=== PATIENT | female | born 1955 | race African-American/Black ===

== ENCOUNTER 2018-09-19 20:35 | Observation (INO) ==
[2018-09-19 21:23] LABS: Basophils % 0.2 % (0.0-0.8); Eosinophils % 0.3 % (0.00-10.9); Hematocrit 37.6 VOL% (35.7-47.0); Hemoglobin 11.9 GM/DL (12.0-16.0); Immature Granulocytes % 0.5 %; Immature Granulocytes Absolute 0.03 #; Lymphocytes # 1.5 10*3/uL (1.4-4.0); Lymphocytes % 24.1 % (21.3-54.2); Mean Corpuscular HGB Conc 31.6 GM/DL (32-36); Mean Corpuscular Hemoglobin 29 PG (27-34); Mean Corpuscular Volume 91.5 FL (87-102); Mean Platelet Volume 10.8 FL (9.6-12.0); Monocytes # 0.5 10*3/uL (0.11-0.8); Monocytes % 7.6 % (1.7-12.7); Neutrophils # 4.2 10*3/uL (1.4-7.4); Neutrophils % 67.3 % (38.7-73.9); Platelet Count 205 T/CUMM (130-400); Red Blood Count 4.11 MC/CUMM (3.8-5.5); Red Cell Distribution Width 14.1 % (9.3-17.3); White Blood Count 6.3 T/CUMM (4-12)
[2018-09-19 21:33] LABS: Partial Thromboplastin Time 28.9 SECS (0-40)
[2018-09-19 21:50] LABS: Alanine Aminotransferase 16 U/L (13-56); Albumin 3.7 G/DL (3.4-5.0); Alkaline Phosphatase 137 U/L (45-117); Aspartate Amino Transferase 14 U/L (0-37); Bilirubin,Total < 0.39 MG/DL (0.2-1.0); Blood Urea Nitrogen 21 MG/DL (7-18); Calcium 9.2 MG/DL (8.5-10.1); Glucose 132 MG/DL (74-106); Osmolality,Calculated 285.3 MOS/KG (273-304); Potassium 3.4 MMOL/L (3.5-5.1); Sodium 141 MMOL/L (136-145); Total Protein 6.9 G/DL (6.4-8.3)
[2018-09-20] MEDS ORDERED: ACETAMINOPHEN 325 MG TABLET PO PRN (02:07)
[2018-09-20] MEDS ORDERED: DOCUSATE SODIUM 100 MG CAPSULE PO PRN (02:07)
[2018-09-20] MEDS ORDERED: MORPHINE 4 MG/1 ML VIAL IV PRN (02:07)
[2018-09-20] MEDS ORDERED: ONDANSETRON 4 MG/2 ML VIAL IV PRN (02:07)
[2018-09-20] MEDS ORDERED: NITROGLYCERIN SL 0.4 MG TABLET SL PRN (02:11)
[2018-09-20] MEDS ORDERED: CYCLOBENZAPRINE 10 MG TABLET PO ONE (02:11)
[2018-09-20] MEDS ORDERED: PANTOPRAZOLE 40 MG VIAL IV ONE (02:14)
[2018-09-20] MEDS ORDERED: MAGNESIUM SULF RIDER 2 GM in PREMIX 1 EACH IV PRN (02:18)
[2018-09-20] MEDS ORDERED: MAGNESIUM SULF RIDER 4 GM in PREMIX 1 EACH IV PRN (02:18)
[2018-09-20] MEDS ORDERED: GLUCAGON 1 MG VIAL IM PRN (02:20)
[2018-09-20] MEDS ORDERED: DEXTROSE 50% 25 GM/50 ML SYRINGE IV PRN (02:20)
[2018-09-20] MEDS: ENOXAPARIN 40 MG/0.4 ML SYRINGE SUBCUT SCH (03:54)
[2018-09-20 05:40] LABS: Basophils % 0.5 % (0.0-0.8); Eosinophils % 0.2 % (0.00-10.9); Hematocrit 38.8 VOL% (35.7-47.0); Hemoglobin 12.2 GM/DL (12.0-16.0); Immature Granulocytes % 0.3 %; Immature Granulocytes Absolute 0.02 #; Lymphocytes # 1.7 10*3/uL (1.4-4.0); Mean Corpuscular HGB Conc 31.4 GM/DL (32-36); Mean Corpuscular Hemoglobin 29 PG (27-34); Mean Corpuscular Volume 92.4 FL (87-102); Mean Platelet Volume 11.7 FL (9.6-12.0); Monocytes # 0.5 10*3/uL (0.11-0.8); Monocytes % 7.9 % (1.7-12.7); Neutrophils # 4.2 10*3/uL (1.4-7.4); Neutrophils % 65.1 % (38.7-73.9); Platelet Count 200 T/CUMM (130-400); White Blood Count 6.5 T/CUMM (4-12)
[2018-09-20 05:42] LABS: Calcium 9.2 MG/DL (8.5-10.1); Potassium 3.2 MMOL/L (3.5-5.1); Risk Ratio 4.22; Thyroid Stimulating Hormone 3.14 uIU/ml (0.358-3.74); VLDL CHOLESTEROL 20.4 MG/DL
[2018-09-20] MEDS ORDERED: ALUM/MAG/SIMETH/LIDO VISC 1:1 30 ML BOTTLE PO ONE (08:56)
[2018-09-20] MEDS ORDERED: ATORVASTATIN 20 MG TABLET PO SCH (09:00)
[2018-09-20] MEDS ORDERED: NON-FORMULARY MEDICATION (Dexlansoprazole [Dexilant] 30 MG) PO SCH (09:00)
[2018-09-20] MEDS: INSULIN LISPRO 100 UNIT/ML SUBCUT SCH ×4 (09:58→20:44)
[2018-09-20] MEDS: glipiZIDE 10 MG TABLET PO SCH (10:00)
[2018-09-20] MEDS: ASPIRIN EC 81 MG TABLET PO SCH (10:01)
[2018-09-20] MEDS: sitaGLIPtin 100 MG TABLET PO SCH (10:01)
[2018-09-20] MEDS: LOSARTAN 50 MG TABLET PO SCH (10:01)
[2018-09-20] MEDS: hydroCHLOROthiazide 12.5 MG CAPSULE PO SCH (10:01)
[2018-09-20] MEDS: CARVEDILOL 12.5 MG TABLET PO SCH ×2 (10:01→20:47)
[2018-09-20] MEDS: amLODIPine 10 MG TABLET PO SCH (10:02)
[2018-09-20] MEDS: POTASSIUM CHLORIDE 20 MEQ TABLET PO SCH (10:02)
[2018-09-20] MEDS: GABAPENTIN 300 MG CAPSULE PO SCH ×2 (10:02→20:46)
[2018-09-20] MEDS: MAGNESIUM CHLORIDE 64 MG TABLET PO SCH ×2 (10:03→20:46)
[2018-09-20] MEDS: PANTOPRAZOLE 40 MG TABLET PO SCH (10:03)
[2018-09-20] MEDS: SERTRALINE 50 MG TABLET PO SCH (10:03)
[2018-09-20] MEDS: ATORVASTATIN 40 MG TABLET PO SCH (10:03)
[2018-09-20] MEDS: ACETAMINOPHEN 325 MG TABLET PO SCH ×2 (16:30→20:47)
[2018-09-20] MEDS: POTASSIUM CHLORIDE 20 MEQ TABLET PO PRN ×2 (16:30→18:35)
[2018-09-20] MEDS: traMADol 50 MG TABLET PO SCH ×2 (16:30→20:47)
[2018-09-21] MEDS: ENOXAPARIN 40 MG/0.4 ML SYRINGE SUBCUT SCH (03:08)
[2018-09-21 08:14] VITALS: BP 122/59
[2018-09-21] MEDS: INSULIN LISPRO 100 UNIT/ML SUBCUT SCH ×2 (08:42→11:17)
[2018-09-21] MEDS: LOSARTAN 50 MG TABLET PO SCH (09:35)
[2018-09-21] MEDS: ATORVASTATIN 40 MG TABLET PO SCH (09:35)
[2018-09-21] MEDS: ACETAMINOPHEN 325 MG TABLET PO SCH (09:35)
[2018-09-21] MEDS: MAGNESIUM CHLORIDE 64 MG TABLET PO SCH (09:35)
[2018-09-21] MEDS: hydroCHLOROthiazide 12.5 MG CAPSULE PO SCH (09:35)
[2018-09-21] MEDS: GABAPENTIN 300 MG CAPSULE PO SCH (09:35)
[2018-09-21] MEDS: amLODIPine 10 MG TABLET PO SCH (09:35)
[2018-09-21] MEDS: sitaGLIPtin 100 MG TABLET PO SCH (09:36)
[2018-09-21] MEDS: CARVEDILOL 12.5 MG TABLET PO SCH (09:36)
[2018-09-21] MEDS: PANTOPRAZOLE 40 MG TABLET PO SCH (09:36)
[2018-09-21] MEDS: POTASSIUM CHLORIDE 20 MEQ TABLET PO SCH (09:36)
[2018-09-21] MEDS: glipiZIDE 10 MG TABLET PO SCH (09:36)
[2018-09-21] MEDS: traMADol 50 MG TABLET PO SCH (09:36)
[2018-09-21] MEDS: ASPIRIN EC 81 MG TABLET PO SCH (09:36)
[2018-09-21] MEDS: SERTRALINE 50 MG TABLET PO SCH (09:36)
== END 2018-09-21 13:27 | disposition home or self-care (01) ==
LOC: N.ED 20:35 → N.EDINP 20:35 → N.4E 09-20 03:06
PROVIDERS: ADMIT Internal Medicine Geriatric Medicine; ATTEND Internal Medicine Geriatric Medicine

== ENCOUNTER 2019-01-21 04:25 | Inpatient (IN) ==
[2019-01-21] MEDS ORDERED: TICAGRELOR 90 MG TABLET ONE (04:42)
[2019-01-21] MEDS ORDERED: HEPARIN 5,000 UNIT/1 ML VIAL ONE (04:42)
[2019-01-21] MEDS ORDERED: ASPIRIN 325 MG TABLET ONE (04:42)
[2019-01-21] MEDS ORDERED: SODIUM CHLORIDE 0.9% 1,000 ML IV STA (04:45)
[2019-01-21] MEDS ORDERED: ASPIRIN 325 MG TABLET PO STA (04:45)
[2019-01-21] MEDS ORDERED: HEPARIN 5,000 UNIT/1 ML VIAL IV ONE (04:45)
[2019-01-21] MEDS ORDERED: TICAGRELOR 90 MG TABLET PO STA (04:46)
[2019-01-21 05:00] LABS: Basophils % 0.3 % (0.0-0.8); Eosinophils % 0.1 % (0.00-10.9); Hemoglobin 12.3 GM/DL (12.0-16.0); Immature Granulocytes % 0.4 %; Immature Granulocytes Absolute 0.03 #; Lymphocytes # 1.2 10*3/uL (1.4-4.0); Lymphocytes % 16.4 % (21.3-54.2); Mean Corpuscular HGB Conc 32.4 GM/DL (32-36); Mean Corpuscular Volume 91.8 FL (87-102); Mean Platelet Volume 11.5 FL (9.6-12.0); Monocytes % 7.2 % (1.7-12.7); Neutrophils % 75.6 % (38.7-73.9); Platelet Count 223 T/CUMM (130-400); Red Blood Count 4.14 MC/CUMM (3.8-5.5); Red Cell Distribution Width 13.9 % (9.3-17.3); White Blood Count 7.5 T/CUMM (4-12)
[2019-01-21] MEDS ORDERED: MIDAZOLAM 2 MG/2 ML VIAL ONE (05:16)
[2019-01-21] MEDS ORDERED: LIDOCAINE 1% 20 ML VIAL ONE (05:16)
[2019-01-21] MEDS ORDERED: fentaNYL 100 MCG/2 ML VIAL ONE (05:16)
[2019-01-21 05:21] LABS: Albumin 3.7 G/DL (3.4-5.0); Bilirubin,Total 0.4 MG/DL (0.2-1.0); Calcium 9.3 MG/DL (8.5-10.1); Osmolality,Calculated 300.6 MOS/KG (273-304); Total Protein 6.7 G/DL (6.4-8.3)
[2019-01-21] MEDS ORDERED: TIROFIBAN 5,000 MCG/100 ML PREMIX IV ONE (05:36)
[2019-01-21] MEDS ORDERED: ZALEPLON 5 MG CAPSULE PO PRN (06:06)
[2019-01-21] MEDS ORDERED: DEXTROSE 50% 25 GM/50 ML VIAL IV PRN (06:06)
[2019-01-21] MEDS ORDERED: ALBUTEROL 2.5 MG/3 ML NEB RESP TX PRN (06:06)
[2019-01-21] MEDS ORDERED: GLUCAGON 1 MG VIAL IM PRN (06:06)
[2019-01-21] MEDS ORDERED: ONDANSETRON 4 MG/2 ML VIAL IV PRN (06:06)
[2019-01-21] MEDS ORDERED: ACETAMINOPHEN 325 MG TABLET PO PRN (06:06)
[2019-01-21] MEDS ORDERED: ALUMINUM/MAGNES/SIMETH MAX STR 30 ML UDCUP PO PRN (06:14)
[2019-01-21] MEDS ORDERED: MAGNESIUM HYDROXIDE SUSP 30 ML UDCUP PO PRN ×2 (06:14→17:10)
[2019-01-21] MEDS: SODIUM CHLORIDE 0.9% 1,000 ML IV SCH ×3 (06:30→19:50)
[2019-01-21] MEDS ORDERED: TIROFIBAN 5,000 MCG/100 ML PREMIX IV SCH (06:30)
[2019-01-21] MEDS: ENOXAPARIN 40 MG/0.4 ML SYRINGE SUBCUT SCH (07:35)
[2019-01-21] MEDS: INSULIN REGULAR 100 UNIT/ML SUBCUT SCH ×4 (07:46→20:49)
[2019-01-21] MEDS: CARVEDILOL 12.5 MG TABLET PO SCH ×2 (07:47→17:09)
[2019-01-21 08:36] LABS: CKMB % 6.2 %
[2019-01-21] MEDS ORDERED: PANTOPRAZOLE 40 MG TABLET PO SCH (09:00)
[2019-01-21] MEDS: MAGNESIUM CHLORIDE 64 MG TABLET PO SCH ×2 (09:19→20:53)
[2019-01-21] MEDS: amLODIPine 10 MG TABLET PO SCH (09:20)
[2019-01-21] MEDS: PANTOPRAZOLE 40 MG TABLET PO SCH (09:20)
[2019-01-21] MEDS: POTASSIUM CHLORIDE 20 MEQ TABLET PO SCH (09:20)
[2019-01-21] MEDS: GABAPENTIN 300 MG CAPSULE PO SCH ×2 (09:20→20:53)
[2019-01-21] MEDS: SERTRALINE 50 MG TABLET PO SCH (09:20)
[2019-01-21] MEDS: TICAGRELOR 90 MG TABLET PO SCH ×2 (09:20→20:53)
[2019-01-21] MEDS: sitaGLIPtin 100 MG TABLET PO SCH (09:20)
[2019-01-21] MEDS: LOSARTAN 50 MG TABLET PO SCH (09:20)
[2019-01-21] MEDS: hydroCHLOROthiazide 12.5 MG CAPSULE PO SCH (09:21)
[2019-01-21] MEDS: ATORVASTATIN 20 MG TABLET PO SCH (09:21)
[2019-01-21] MEDS: glipiZIDE 10 MG TABLET PO SCH (09:21)
[2019-01-21 12:52] LABS: Apearance,Urine CLEAR (Clear); Bilirubin,Urine Negative (Negative); Blood, Urine Negative (Negative); Glucose,Urine (UA) Negative (Negative); Ketones,Urine Negative (Negative); Mucus,Urine Occasional /LPF (Occasional); Nitrite,Urine Negative (Negative); Protein,Urine Negative; RBC,Urine 1 /HPF (0-4); Urine Color Straw (Yellow); Urine Specific Gravity 1.033 (1.001-1.035); Urine Urobilinogen < 2.0 EU/DL (0.2-1.0); WBC,Urine 1 /HPF (0-6)
[2019-01-21 16:08] LABS: CKMB % 7.2 %
[2019-01-21] MEDS ORDERED: diphenhydrAMINE CAP 25 MG CAPSULE PO PRN (17:10)
[2019-01-21 23:01] LABS: CKMB % 5.2 %
[2019-01-21 23:05] LABS: Troponin I 59.1 NG/ML (0.00-0.045)
[2019-01-22] MEDS: SODIUM CHLORIDE 0.9% 1,000 ML IV SCH ×3 (03:50→21:46)
[2019-01-22 03:56] LABS: Basophils % 0.3 % (0.0-0.8); Eosinophils % 0.1 % (0.00-10.9); Hematocrit 35.7 VOL% (35.7-47.0); Hemoglobin 11.1 GM/DL (12.0-16.0); Immature Granulocytes % 0.6 %; Immature Granulocytes Absolute 0.04 #; Lymphocytes % 13.8 % (21.3-54.2); Mean Corpuscular HGB Conc 31.1 GM/DL (32-36); Mean Corpuscular Volume 92.7 FL (87-102); Mean Platelet Volume 11.2 FL (9.6-12.0); Monocytes % 8.7 % (1.7-12.7); Neutrophils % 76.5 % (38.7-73.9); Platelet Count 188 T/CUMM (130-400); Red Blood Count 3.85 MC/CUMM (3.8-5.5); Red Cell Distribution Width 14.1 % (9.3-17.3); White Blood Count 7.2 T/CUMM (4-12)
[2019-01-22 04:12] LABS: Bilirubin,Total 0.4 MG/DL (0.2-1.0); Calcium 8.4 MG/DL (8.5-10.1); Osmolality,Calculated 297.3 MOS/KG (273-304); Risk Ratio 3.3; Total Protein 6.1 G/DL (6.4-8.3); VLDL CHOLESTEROL 22.2 MG/DL
[2019-01-22] MEDS: ENOXAPARIN 40 MG/0.4 ML SYRINGE SUBCUT SCH (05:45)
[2019-01-22] MEDS: INSULIN REGULAR 100 UNIT/ML SUBCUT SCH ×4 (07:19→21:47)
[2019-01-22] MEDS: glipiZIDE 10 MG TABLET PO SCH (08:59)
[2019-01-22] MEDS: LOSARTAN 50 MG TABLET PO SCH (08:59)
[2019-01-22] MEDS: GABAPENTIN 300 MG CAPSULE PO SCH ×2 (08:59→21:47)
[2019-01-22] MEDS: amLODIPine 10 MG TABLET PO SCH (09:00)
[2019-01-22] MEDS: ATORVASTATIN 20 MG TABLET PO SCH (09:00)
[2019-01-22] MEDS: sitaGLIPtin 100 MG TABLET PO SCH (09:00)
[2019-01-22] MEDS ORDERED: ASPIRIN EC 81 MG TABLET PO SCH (09:00)
[2019-01-22] MEDS: MAGNESIUM CHLORIDE 64 MG TABLET PO SCH ×2 (09:00→21:47)
[2019-01-22] MEDS: hydroCHLOROthiazide 12.5 MG CAPSULE PO SCH (09:00)
[2019-01-22] MEDS: SERTRALINE 50 MG TABLET PO SCH (09:00)
[2019-01-22] MEDS: CARVEDILOL 12.5 MG TABLET PO SCH ×2 (09:00→17:01)
[2019-01-22] MEDS: PANTOPRAZOLE 40 MG TABLET PO SCH (09:01)
[2019-01-22] MEDS: POTASSIUM CHLORIDE 20 MEQ TABLET PO SCH (09:01)
[2019-01-22] MEDS: TICAGRELOR 90 MG TABLET PO SCH ×2 (09:01→21:47)
[2019-01-22] MEDS ORDERED: MAGNESIUM SULF RIDER 2 GM in PREMIX 1 EACH IV PRN (14:36)
[2019-01-22] MEDS: POTASSIUM CHLORIDE 20 MEQ/15 ML UDCUP PO PRN ×2 (14:58→17:01)
[2019-01-22] MEDS: traZODone 50 MG TABLET PO SCH (21:47)
[2019-01-23] MEDS: SODIUM CHLORIDE 0.9% 1,000 ML IV SCH ×3 (03:33→21:50)
[2019-01-23] MEDS: ENOXAPARIN 40 MG/0.4 ML SYRINGE SUBCUT SCH (06:42)
[2019-01-23] MEDS: INSULIN REGULAR 100 UNIT/ML SUBCUT SCH ×4 (09:39→22:05)
[2019-01-23] MEDS: TICAGRELOR 90 MG TABLET PO SCH ×2 (09:41→21:51)
[2019-01-23] MEDS: ASPIRIN CHEW 81 MG TABLET PO SCH (09:41)
[2019-01-23] MEDS: glipiZIDE 10 MG TABLET PO SCH (09:41)
[2019-01-23] MEDS: LOSARTAN 50 MG TABLET PO SCH (09:41)
[2019-01-23] MEDS: CARVEDILOL 12.5 MG TABLET PO SCH ×2 (09:41→17:16)
[2019-01-23] MEDS: MAGNESIUM CHLORIDE 64 MG TABLET PO SCH ×2 (09:42→21:50)
[2019-01-23] MEDS: GABAPENTIN 300 MG CAPSULE PO SCH ×2 (09:42→21:51)
[2019-01-23] MEDS: PANTOPRAZOLE 40 MG TABLET PO SCH (09:42)
[2019-01-23] MEDS: hydroCHLOROthiazide 12.5 MG CAPSULE PO SCH (09:42)
[2019-01-23] MEDS: sitaGLIPtin 100 MG TABLET PO SCH (09:42)
[2019-01-23] MEDS: ATORVASTATIN 20 MG TABLET PO SCH (09:42)
[2019-01-23] MEDS: POTASSIUM CHLORIDE 20 MEQ TABLET PO SCH (09:42)
[2019-01-23] MEDS: amLODIPine 10 MG TABLET PO SCH (09:42)
[2019-01-23] MEDS: SERTRALINE 50 MG TABLET PO SCH (09:43)
[2019-01-23] MEDS ORDERED: MAGNESIUM SULF RIDER 2 GM in PREMIX 1 EACH IV ONE (15:17)
[2019-01-23] MEDS ORDERED: ATORVASTATIN 40 MG TABLET PO SCH (21:00)
[2019-01-23] MEDS: CARVEDILOL 25 MG TABLET PO SCH (21:51)
[2019-01-23] MEDS: traZODone 50 MG TABLET PO SCH (21:51)
[2019-01-24 05:09] LABS: Basophils % 0.2 % (0.0-0.8); Eosinophils % 0.2 % (0.00-10.9); Hematocrit 35.6 VOL% (35.7-47.0); Hemoglobin 11.6 GM/DL (12.0-16.0); Immature Granulocytes Absolute 0.06 #; Lymphocytes # 1.1 10*3/uL (1.4-4.0); Lymphocytes % 19.7 % (21.3-54.2); Mean Corpuscular HGB Conc 32.6 GM/DL (32-36); Mean Platelet Volume 11.1 FL (9.6-12.0); Monocytes % 8.5 % (1.7-12.7); Neutrophils % 70.4 % (38.7-73.9); Platelet Count 185 T/CUMM (130-400); Red Blood Count 3.87 MC/CUMM (3.8-5.5); Red Cell Distribution Width 13.9 % (9.3-17.3); White Blood Count 5.8 T/CUMM (4-12)
[2019-01-24 05:41] LABS: Calcium 8.6 MG/DL (8.5-10.1); Osmolality,Calculated 283.8 MOS/KG (273-304)
[2019-01-24] MEDS: ENOXAPARIN 40 MG/0.4 ML SYRINGE SUBCUT SCH (05:52)
[2019-01-24] MEDS: SODIUM CHLORIDE 0.9% 1,000 ML IV SCH (05:54)
[2019-01-24 08:29] VITALS: BP 115/69
[2019-01-24] MEDS: sitaGLIPtin 100 MG TABLET PO SCH (08:45)
[2019-01-24] MEDS: MAGNESIUM CHLORIDE 64 MG TABLET PO SCH (08:45)
[2019-01-24] MEDS: hydroCHLOROthiazide 12.5 MG CAPSULE PO SCH (08:45)
[2019-01-24] MEDS: glipiZIDE 10 MG TABLET PO SCH (08:45)
[2019-01-24] MEDS: SERTRALINE 50 MG TABLET PO SCH (08:46)
[2019-01-24] MEDS: ASPIRIN CHEW 81 MG TABLET PO SCH (08:46)
[2019-01-24] MEDS: GABAPENTIN 300 MG CAPSULE PO SCH (08:46)
[2019-01-24] MEDS: POTASSIUM CHLORIDE 20 MEQ TABLET PO SCH (08:46)
[2019-01-24] MEDS: PANTOPRAZOLE 40 MG TABLET PO SCH (08:46)
[2019-01-24] MEDS: TICAGRELOR 90 MG TABLET PO SCH (08:46)
[2019-01-24] MEDS: CARVEDILOL 25 MG TABLET PO SCH (08:46)
[2019-01-24] MEDS: amLODIPine 10 MG TABLET PO SCH (08:47)
[2019-01-24] MEDS ORDERED: LOSARTAN 50 MG TABLET PO SCH (09:00)
[2019-01-24] MEDS: INSULIN REGULAR 100 UNIT/ML SUBCUT SCH (11:20)
== END 2019-01-24 12:41 | disposition home or self-care (01) | DRG 247 ==
LOC: N.ED 04:25 → N.CC 05:13 → N.EDINP 06:07 → N.CC 06:41 → N.TELES 01-22 18:25
PROVIDERS: ADMIT Internal Medicine Cardiovascular Disease; ATTEND Internal Medicine Cardiovascular Disease
PROC: CLCCHCL (ICD-10-PCS; 2019-01-21 05:45)

== ENCOUNTER 2022-04-14 12:21 | Inpatient (IN) ==
[2022-04-14 13:15] LABS: Basophils % 0.4 % (0.0-0.8); Hemoglobin 13.6 GM/DL (12.0-16.0); Immature Granulocytes % 0.4 %; Immature Granulocytes Absolute 0.02 #; Lymphocytes # 1.5 10*3/uL (1.4-4.0); Lymphocytes % 29.1 % (21.3-54.2); Mean Corpuscular HGB Conc 33.2 GM/DL (32-36); Mean Corpuscular Volume 93.2 FL (87-102); Mean Platelet Volume 11.2 FL (9.6-12.0); Monocytes # 0.3 10*3/uL (0.11-0.8); Monocytes % 6.3 % (1.7-12.7); Neutrophils % 63.8 % (38.7-73.9); Platelet Count 184 T/CUMM (130-400); Red Cell Distribution Width 14.2 % (9.3-17.3); White Blood Count 5.2 T/CUMM (4-12)
[2022-04-14 13:26] LABS: PT Patient Result 11.3 SECS (10.1-12.1); Partial Thromboplastin Time 30.8 SECS (23.7-32.9)
[2022-04-14 13:50] LABS: Albumin 3.3 G/DL (3.4-5.0); Bilirubin,Total 0.6 MG/DL (0.20-1.00); Calcium 9.7 MG/DL (8.5-10.1); Potassium 2.9 MMOL/L (3.5-5.1); Total Protein 6.2 G/DL (6.4-8.2)
[2022-04-14] MEDS ORDERED: ASPIRIN CHEW 81 MG TABLET PO STA (13:55)
[2022-04-14] MEDS ORDERED: POTASSIUM CHLORIDE 20 MEQ TABLET PO STA (14:00)
[2022-04-14] MEDS ORDERED: hydrALAZINE 20 MG/1 ML VIAL IV PRN (14:24)
[2022-04-14] MEDS ORDERED: ALUMINUM/MAGNES/SIMETH MAX STR 30 ML UDCUP PO PRN (14:24)
[2022-04-14] MEDS ORDERED: MORPHINE 2 MG/1 ML SYRINGE IV PRN (14:24)
[2022-04-14] MEDS ORDERED: DOCUSATE SODIUM 100 MG CAPSULE PO PRN (14:24)
[2022-04-14] MEDS ORDERED: ONDANSETRON 4 MG/2 ML VIAL IV PRN (14:24)
[2022-04-14] MEDS ORDERED: ZALEPLON 5 MG CAPSULE PO PRN (14:24)
[2022-04-14] MEDS ORDERED: NITROGLYCERIN SL 0.4 MG TABLET SL PRN (14:29)
[2022-04-14] MEDS ORDERED: ENOXAPARIN 100 MG/ML SYRINGE SUBCUT SCH (14:30)
[2022-04-14] MEDS ORDERED: TICAGRELOR 90 MG TABLET PO STA (14:30)
[2022-04-14] MEDS: NITROGLYCERIN 2% OINT 1 INCH/GM PACK TOP SCH ×2 (14:49→21:31)
[2022-04-14] MEDS: ENOXAPARIN 80 MG/0.8 ML SYRINGE SUBCUT SCH (17:03)
[2022-04-14] MEDS: carvediloL 25 MG TABLET PO SCH (17:04)
[2022-04-14] MEDS: INSULIN REGULAR 100 UNIT/ML SUBCUT SCH ×2 (17:05→21:30)
[2022-04-14] MEDS: GABAPENTIN 300 MG CAPSULE PO SCH (21:30)
[2022-04-14] MEDS: ASPIRIN EC 81 MG TABLET PO SCH (21:30)
[2022-04-15] MEDS: NITROGLYCERIN 2% OINT 1 INCH/GM PACK TOP SCH ×4 (02:55→22:09)
[2022-04-15] MEDS: ENOXAPARIN 80 MG/0.8 ML SYRINGE SUBCUT SCH ×2 (02:55→15:17)
[2022-04-15 04:42] LABS: Basophils % 0.4 % (0.0-0.8); Eosinophils % 0.2 % (0.00-10.9); Hematocrit 39.4 VOL% (35.7-47.0); Hemoglobin 13.1 GM/DL (12.0-16.0); Immature Granulocytes % 0.5 %; Immature Granulocytes Absolute 0.03 #; Lymphocytes # 1.4 10*3/uL (1.4-4.0); Lymphocytes % 24.8 % (21.3-54.2); Mean Corpuscular HGB Conc 33.2 GM/DL (32-36); Mean Corpuscular Volume 93.6 FL (87-102); Mean Platelet Volume 11.6 FL (9.6-12.0); Monocytes # 0.4 10*3/uL (0.11-0.8); Monocytes % 7.9 % (1.7-12.7); Neutrophils % 66.2 % (38.7-73.9); Platelet Count 167 T/CUMM (130-400); Red Blood Count 4.21 MC/CUMM (3.8-5.5); Red Cell Distribution Width 14.3 % (9.3-17.3); White Blood Count 5.6 T/CUMM (4-12)
[2022-04-15 05:03] LABS: Calcium 9.6 MG/DL (8.5-10.1); Osmolality,Calculated 289.7 MOS/KG (273-304); Risk Ratio 3.4; VLDL Cholesterol 27.8 MG/DL
[2022-04-15] MEDS ORDERED: MAGNESIUM SULF RIDER 2 GM/50 ML PREMIX IV PRN (07:55)
[2022-04-15] MEDS ORDERED: MAGNESIUM SULF RIDER 4 GM/100 ML PREMIX IV PRN (07:55)
[2022-04-15] MEDS: INSULIN REGULAR 100 UNIT/ML SUBCUT SCH ×4 (07:59→22:08)
[2022-04-15] MEDS ORDERED: amLODIPine 5 MG TABLET PO SCH (09:00)
[2022-04-15] MEDS ORDERED: [UNRECOGNIZED DRUG - OTHER] PO SCH (09:00)
[2022-04-15] MEDS ORDERED: DEXLANSOPRAZOLE 30 MG PO SCH (09:00)
[2022-04-15] MEDS ORDERED: ATORVASTATIN 40 MG TABLET PO SCH (09:00)
[2022-04-15] MEDS: hydroCHLOROthiazide 12.5 MG CAPSULE PO SCH (09:06)
[2022-04-15] MEDS: POTASSIUM CHLORIDE 20 MEQ TABLET PO PRN ×2 (09:06→11:03)
[2022-04-15] MEDS: carvediloL 25 MG TABLET PO SCH ×2 (09:07→17:54)
[2022-04-15] MEDS: GABAPENTIN 300 MG CAPSULE PO SCH ×2 (09:07→22:08)
[2022-04-15] MEDS: MULTIVITAMIN (CENTRUM) TABLET PO SCH (09:07)
[2022-04-15] MEDS: LORATADINE 10 MG TABLET PO SCH (09:07)
[2022-04-15] MEDS: MAGNESIUM OXIDE 400 MG TABLET PO SCH (09:07)
[2022-04-15] MEDS: TICAGRELOR 90 MG TABLET PO SCH ×2 (09:07→22:08)
[2022-04-15] MEDS: CHOLECALCIFEROL 1,000 UNIT TABLET PO SCH (09:07)
[2022-04-15] MEDS: SPIRONOLACTONE 25 MG TABLET PO SCH (09:07)
[2022-04-15] MEDS: PANTOPRAZOLE 40 MG TABLET PO SCH (09:07)
[2022-04-15] MEDS: ASPIRIN EC 81 MG TABLET PO SCH (22:08)
[2022-04-16] MEDS: NITROGLYCERIN 2% OINT 1 INCH/GM PACK TOP SCH ×4 (02:20→21:46)
[2022-04-16] MEDS: ENOXAPARIN 80 MG/0.8 ML SYRINGE SUBCUT SCH (03:15)
[2022-04-16 04:20] LABS: Hematocrit 37.3 VOL% (35.7-47.0); Hemoglobin 12.3 GM/DL (12.0-16.0); Immature Granulocytes % 0.2 %; Immature Granulocytes Absolute 0.01 #; Lymphocytes # 1.3 10*3/uL (1.4-4.0); Lymphocytes % 30.6 % (21.3-54.2); Mean Corpuscular Volume 95.4 FL (87-102); Mean Platelet Volume 11.8 FL (9.6-12.0); Monocytes # 0.4 10*3/uL (0.11-0.8); Monocytes % 8.9 % (1.7-12.7); Neutrophils % 60.3 % (38.7-73.9); Platelet Count 160 T/CUMM (130-400); Red Blood Count 3.91 MC/CUMM (3.8-5.5); Red Cell Distribution Width 14.6 % (9.3-17.3); White Blood Count 4.2 T/CUMM (4-12)
[2022-04-16 04:45] LABS: Calcium 9.7 MG/DL (8.5-10.1); Osmolality,Calculated 283.1 MOS/KG (273-304); Potassium 3.3 MMOL/L (3.5-5.1)
[2022-04-16] MEDS ORDERED: POTASSIUM CHLORIDE 20 MEQ TABLET PO ONE (06:30)
[2022-04-16] MEDS: INSULIN REGULAR 100 UNIT/ML SUBCUT SCH ×4 (08:40→21:46)
[2022-04-16] MEDS: ENOXAPARIN 40 MG/0.4 ML SYRINGE SUBCUT SCH (09:20)
[2022-04-16] MEDS: GABAPENTIN 300 MG CAPSULE PO SCH ×2 (09:21→21:46)
[2022-04-16] MEDS: carvediloL 25 MG TABLET PO SCH ×2 (09:21→16:54)
[2022-04-16] MEDS: PANTOPRAZOLE 40 MG TABLET PO SCH (09:21)
[2022-04-16] MEDS: TICAGRELOR 90 MG TABLET PO SCH ×2 (09:21→21:46)
[2022-04-16] MEDS: LORATADINE 10 MG TABLET PO SCH (09:21)
[2022-04-16] MEDS: SPIRONOLACTONE 25 MG TABLET PO SCH (09:21)
[2022-04-16] MEDS: MAGNESIUM OXIDE 400 MG TABLET PO SCH (09:21)
[2022-04-16] MEDS: ATORVASTATIN 40 MG TABLET PO SCH (09:21)
[2022-04-16] MEDS: MULTIVITAMIN (CENTRUM) TABLET PO SCH (09:22)
[2022-04-16] MEDS: CHOLECALCIFEROL 1,000 UNIT TABLET PO SCH (09:22)
[2022-04-16] MEDS: hydroCHLOROthiazide 12.5 MG CAPSULE PO SCH (09:22)
[2022-04-16] MEDS: ASPIRIN EC 81 MG TABLET PO SCH (21:46)
[2022-04-17] MEDS: NITROGLYCERIN 2% OINT 1 INCH/GM PACK TOP SCH ×4 (04:14→22:23)
[2022-04-17 05:23] LABS: Hematocrit 36.4 VOL% (35.7-47.0); Hemoglobin 12.1 GM/DL (12.0-16.0); Immature Granulocytes % 0.8 %; Immature Granulocytes Absolute 0.03 #; Lymphocytes # 1.1 10*3/uL (1.4-4.0); Lymphocytes % 27.8 % (21.3-54.2); Mean Corpuscular HGB Conc 33.2 GM/DL (32-36); Mean Corpuscular Volume 95.5 FL (87-102); Mean Platelet Volume 12.2 FL (9.6-12.0); Monocytes # 0.3 10*3/uL (0.11-0.8); Monocytes % 8.6 % (1.7-12.7); Neutrophils % 62.8 % (38.7-73.9); Platelet Count 156 T/CUMM (130-400); Red Blood Count 3.81 MC/CUMM (3.8-5.5); Red Cell Distribution Width 14.4 % (9.3-17.3)
[2022-04-17 05:46] LABS: Calcium 9.6 MG/DL (8.5-10.1); Osmolality,Calculated 283.1 MOS/KG (273-304); Potassium 3.5 MMOL/L (3.5-5.1)
[2022-04-17] MEDS ORDERED: DIAZEPAM 5 MG TABLET PO ONE ×2 (08:00→15:00)
[2022-04-17] MEDS ORDERED: diphenhydrAMINE CAP 25 MG CAPSULE PO ONE ×2 (08:00→15:00)
[2022-04-17] MEDS ORDERED: POTASSIUM CHLORIDE 20 MEQ TABLET PO ONE (08:12)
[2022-04-17] MEDS: hydroCHLOROthiazide 12.5 MG CAPSULE PO SCH (09:55)
[2022-04-17] MEDS: ATORVASTATIN 40 MG TABLET PO SCH (09:55)
[2022-04-17] MEDS: GABAPENTIN 300 MG CAPSULE PO SCH ×2 (09:56→22:23)
[2022-04-17] MEDS: MAGNESIUM OXIDE 400 MG TABLET PO SCH (09:56)
[2022-04-17] MEDS: SPIRONOLACTONE 25 MG TABLET PO SCH (09:56)
[2022-04-17] MEDS: MULTIVITAMIN (CENTRUM) TABLET PO SCH (09:56)
[2022-04-17] MEDS: PANTOPRAZOLE 40 MG TABLET PO SCH (09:56)
[2022-04-17] MEDS: carvediloL 25 MG TABLET PO SCH ×2 (09:56→17:27)
[2022-04-17] MEDS: LORATADINE 10 MG TABLET PO SCH (09:57)
[2022-04-17] MEDS: TICAGRELOR 90 MG TABLET PO SCH ×2 (09:57→22:25)
[2022-04-17] MEDS: ENOXAPARIN 40 MG/0.4 ML SYRINGE SUBCUT SCH (09:57)
[2022-04-17] MEDS: CHOLECALCIFEROL 1,000 UNIT TABLET PO SCH (09:57)
[2022-04-17] MEDS: INSULIN REGULAR 100 UNIT/ML SUBCUT SCH ×4 (10:04→21:54)
[2022-04-17] MEDS ORDERED: MIDAZOLAM 2 MG/2 ML VIAL ONE (15:39)
[2022-04-17] MEDS ORDERED: fentaNYL 100 MCG/2 ML VIAL ONE (15:39)
[2022-04-17] MEDS ORDERED: ASPIRIN 325 MG TABLET ONE (15:47)
[2022-04-17] MEDS ORDERED: SODIUM CHLORIDE 0.9% 1,000 ML IV SCH (16:30)
[2022-04-17] MEDS: ASPIRIN EC 81 MG TABLET PO SCH (22:23)
[2022-04-18] MEDS: NITROGLYCERIN 2% OINT 1 INCH/GM PACK TOP SCH ×3 (02:30→09:36)
[2022-04-18 05:34] LABS: Basophils % 0.1 % (0.0-0.8); Hematocrit 37.1 VOL% (35.7-47.0); Hemoglobin 12.2 GM/DL (12.0-16.0); Immature Granulocytes % 0.4 %; Immature Granulocytes Absolute 0.03 #; Lymphocytes # 0.7 10*3/uL (1.4-4.0); Lymphocytes % 8.4 % (21.3-54.2); Mean Corpuscular HGB Conc 32.9 GM/DL (32-36); Mean Corpuscular Volume 95.4 FL (87-102); Mean Platelet Volume 12.1 FL (9.6-12.0); Monocytes # 0.6 10*3/uL (0.11-0.8); Monocytes % 7.7 % (1.7-12.7); Neutrophils % 83.4 % (38.7-73.9); Platelet Count 146 T/CUMM (130-400); Red Blood Count 3.89 MC/CUMM (3.8-5.5); Red Cell Distribution Width 14.4 % (9.3-17.3); White Blood Count 8.1 T/CUMM (4-12)
[2022-04-18 05:54] LABS: Calcium 9.2 MG/DL (8.5-10.1); Osmolality,Calculated 286.1 MOS/KG (273-304); Potassium 3.7 MMOL/L (3.5-5.1)
[2022-04-18] MEDS: INSULIN REGULAR 100 UNIT/ML SUBCUT SCH ×2 (07:47→12:36)
[2022-04-18] MEDS: GABAPENTIN 300 MG CAPSULE PO SCH (09:02)
[2022-04-18] MEDS: MAGNESIUM OXIDE 400 MG TABLET PO SCH (09:03)
[2022-04-18] MEDS: ENOXAPARIN 40 MG/0.4 ML SYRINGE SUBCUT SCH (09:03)
[2022-04-18] MEDS: carvediloL 25 MG TABLET PO SCH (09:03)
[2022-04-18] MEDS: ATORVASTATIN 40 MG TABLET PO SCH (09:03)
[2022-04-18] MEDS: LORATADINE 10 MG TABLET PO SCH (09:03)
[2022-04-18] MEDS: TICAGRELOR 90 MG TABLET PO SCH (09:04)
[2022-04-18] MEDS: SPIRONOLACTONE 25 MG TABLET PO SCH (09:04)
[2022-04-18] MEDS: MULTIVITAMIN (CENTRUM) TABLET PO SCH (09:04)
[2022-04-18] MEDS: hydroCHLOROthiazide 12.5 MG CAPSULE PO SCH (09:05)
[2022-04-18] MEDS: CHOLECALCIFEROL 1,000 UNIT TABLET PO SCH (09:06)
[2022-04-18] MEDS: PANTOPRAZOLE 40 MG TABLET PO SCH (09:06)
[2022-04-18 12:31] VITALS: BP 108/69
[2022-04-18] MEDS ORDERED: hydrALAZINE 25 MG TABLET PO SCH (15:00)
[2022-04-19] MEDS ORDERED: CLOPIDOGREL 75 MG TABLET PO SCH (09:00)
[2022-04-19] MEDS ORDERED: ISOSORBIDE MONONITRATE 30 MG TABLET PO SCH (09:00)
== END 2022-04-18 14:40 | disposition home or self-care (01) | DRG 281 ==
LOC: N.ED 12:21 → N.EDINP 14:24 → N.TELEN 15:43
PROVIDERS: ADMIT Internal Medicine Cardiovascular Disease; ATTEND Internal Medicine Cardiovascular Disease
PROC: CLCCHCL (ICD-10-PCS; 2022-04-17 16:45)

== ENCOUNTER 2022-07-05 09:12 | Observation (INO) ==
[2022-07-05] MEDS ORDERED: SODIUM CHLORIDE 0.9% 500 ML IV STA ×2 (11:14→13:02)
[2022-07-05] MEDS: SODIUM CHLORIDE 0.9% 1,000 ML IV STA ×2 (12:20→12:53)
[2022-07-05 12:25] LABS: Basophils % 0.3 % (0.0-0.8); Hematocrit 39.6 VOL% (35.7-47.0); Immature Granulocytes % 0.4 %; Immature Granulocytes Absolute 0.03 #; Lymphocytes % 13.1 % (21.3-54.2); Mean Corpuscular HGB Conc 32.8 GM/DL (32-36); Mean Corpuscular Volume 95.4 FL (87-102); Mean Platelet Volume 10.8 FL (9.6-12.0); Monocytes # 0.4 10*3/uL (0.11-0.8); Monocytes % 5.4 % (1.7-12.7); Neutrophils % 80.8 % (38.7-73.9); Platelet Count 192 T/CUMM (130-400); Red Blood Count 4.15 MC/CUMM (3.8-5.5); Red Cell Distribution Width 13.8 % (9.3-17.3); White Blood Count 7.6 T/CUMM (4-12)
[2022-07-05 12:48] LABS: Albumin 3.9 G/DL (3.4-5.0); Bilirubin,Total 0.5 MG/DL (0.20-1.00); Calcium 9.9 MG/DL (8.5-10.1); Osmolality,Calculated 280.5 MOS/KG (273-304); Total Protein 7.4 G/DL (6.4-8.2)
[2022-07-05] MEDS ORDERED: SIMETHICONE CHEW 125 MG TABLET PO PRN (13:11)
[2022-07-05] MEDS ORDERED: LACTULOSE 20 GM/30 ML UDCUP PO PRN (13:11)
[2022-07-05] MEDS ORDERED: ALUMINUM/MAGNES/SIMETH MAX STR 30 ML UDCUP PO PRN (13:11)
[2022-07-05] MEDS ORDERED: CALCIUM CARBONATE CHEW 500 MG TABLET PO PRN (13:11)
[2022-07-05] MEDS ORDERED: ONDANSETRON 4 MG/2 ML VIAL IV PRN (13:11)
[2022-07-05] MEDS ORDERED: ACETAMINOPHEN 325 MG TABLET PO PRN (13:11)
[2022-07-05] MEDS ORDERED: ENOXAPARIN 40 MG/0.4 ML SYRINGE SUBCUT SCH (14:00)
[2022-07-05] MEDS ORDERED: DEXTROSE 10% 250 ML BAG IV PRN (14:21)
[2022-07-05] MEDS ORDERED: DEXTROSE 50% 25 GM/50 ML VIAL IV PRN (14:21)
[2022-07-05] MEDS ORDERED: GLUCAGON 1 MG VIAL IM PRN (14:21)
[2022-07-05] MEDS ORDERED: hydrALAZINE 20 MG/1 ML VIAL IV PRN (14:45)
[2022-07-05] MEDS ORDERED: MAGNESIUM SULF RIDER 2 GM/50 ML PREMIX IV ONE (14:47)
[2022-07-05] MEDS: INSULIN REGULAR 100 UNIT/ML SUBCUT SCH (15:35)
[2022-07-05 18:21] LABS: Bilirubin,Urine Negative (Negative); Blood, Urine Negative (Negative); Glucose,Urine (UA) Negative (Negative); Ketones,Urine Negative (Negative); Nitrite,Urine Negative (Negative); Protein,Urine Negative (Negative); Urine Appearance Clear (Clear); Urine Color Yellow (Yellow); Urine Urobilinogen < 2.0 eU/dL (<2.0); Urine pH 5.5 (4.5-8.0)
[2022-07-05 18:25] LABS: Bacteria,Urine Occasional /HPF (Few); Mucus,Urine Occasional /LPF (Occasional); RBC,Urine 2 /HPF (0-4)
[2022-07-05 18:36] LABS: Barbiturates Screen,Urine Negative (Negative); Benzodiazepines Screen,Urine Negative (Negative); Cannabinoid Screen,Urine Negative (Negative); Opiate Screen,Urine Negative (Negative); Phencyclidine Screen,Urine Negative (Negative)
[2022-07-05] MEDS: ASPIRIN EC 81 MG TABLET PO SCH (21:03)
[2022-07-05] MEDS: ATORVASTATIN 40 MG TABLET PO SCH (21:03)
[2022-07-06 06:47] LABS: Basophils % 0.2 % (0.0-0.8); Hematocrit 36.6 VOL% (35.7-47.0); Hemoglobin 11.7 GM/DL (12.0-16.0); Immature Granulocytes % 0.6 %; Immature Granulocytes Absolute 0.03 #; Lymphocytes # 1.1 10*3/uL (1.4-4.0); Lymphocytes % 22.6 % (21.3-54.2); Mean Corpuscular Volume 96.8 FL (87-102); Mean Platelet Volume 11.1 FL (9.6-12.0); Monocytes # 0.4 10*3/uL (0.11-0.8); Monocytes % 8.8 % (1.7-12.7); Neutrophils % 67.8 % (38.7-73.9); Platelet Count 180 T/CUMM (130-400); Red Blood Count 3.78 MC/CUMM (3.8-5.5); Red Cell Distribution Width 13.9 % (9.3-17.3); White Blood Count 4.8 T/CUMM (4-12)
[2022-07-06] MEDS: INSULIN REGULAR 100 UNIT/ML SUBCUT SCH ×5 (06:52→20:47)
[2022-07-06 07:18] LABS: Calcium 9.6 MG/DL (8.5-10.1); Osmolality,Calculated 281.4 MOS/KG (273-304); Potassium 3.3 MMOL/L (3.5-5.1); Risk Ratio 3.25; Thyroid Stimulating Hormone 1.26 uIU/ml (0.358-3.74); VLDL Cholesterol 17.2 MG/DL
[2022-07-06] MEDS ORDERED: ceFAZolin 1,000 MG VIAL ONE ×2 (07:50)
[2022-07-06] MEDS ORDERED: TISSUE ADHESIVE 1 EACH APPLICATOR TOP ONE (07:50)
[2022-07-06 08:13] LABS: VLDL Cholesterol 18.4 MG/DL
[2022-07-06] MEDS ORDERED: SODIUM CHLORIDE 0.9% 1,000 ML IV SCH ×2 (08:30→12:30)
[2022-07-06] MEDS ORDERED: fentaNYL 100 MCG/2 ML VIAL ONE (08:37)
[2022-07-06] MEDS ORDERED: MIDAZOLAM 2 MG/2 ML VIAL ONE ×2 (08:37→08:50)
[2022-07-06] MEDS ORDERED: POTASSIUM CHLORIDE 20 MEQ TABLET PO ONE (09:00)
[2022-07-06] MEDS ORDERED: HYDROmorphone 1 MG/1 ML SYRINGE ONE (09:28)
[2022-07-06] MEDS: CHOLECALCIFEROL 1,000 UNIT TABLET PO SCH (11:09)
[2022-07-06] MEDS: CLOPIDOGREL 75 MG TABLET PO SCH (11:09)
[2022-07-06] MEDS: PANTOPRAZOLE 40 MG TABLET PO SCH (11:09)
[2022-07-06] MEDS: MAGNESIUM OXIDE 400 MG TABLET PO SCH (11:09)
[2022-07-06] MEDS: ASPIRIN EC 81 MG TABLET PO SCH (20:46)
[2022-07-06] MEDS: ATORVASTATIN 40 MG TABLET PO SCH (20:47)
[2022-07-07 05:07] LABS: Basophils % 0.2 % (0.0-0.8); Hematocrit 34.6 VOL% (35.7-47.0); Immature Granulocytes % 0.3 %; Immature Granulocytes Absolute 0.02 #; Lymphocytes # 0.8 10*3/uL (1.4-4.0); Lymphocytes % 14.1 % (21.3-54.2); Mean Corpuscular HGB Conc 31.8 GM/DL (32-36); Mean Corpuscular Volume 97.7 FL (87-102); Mean Platelet Volume 10.9 FL (9.6-12.0); Monocytes # 0.9 10*3/uL (0.11-0.8); Monocytes % 15.8 % (1.7-12.7); Neutrophils % 69.6 % (38.7-73.9); Platelet Count 156 T/CUMM (130-400); Red Blood Count 3.54 MC/CUMM (3.8-5.5); Red Cell Distribution Width 13.9 % (9.3-17.3); White Blood Count 5.8 T/CUMM (4-12)
[2022-07-07 05:29] LABS: Calcium 9.3 MG/DL (8.5-10.1); Osmolality,Calculated 281.4 MOS/KG (273-304); Potassium 3.8 MMOL/L (3.5-5.1)
[2022-07-07 06:06] LABS: Anisocytosis 1+; Band Neutrophils 23 % (0-10); Burr Cells 1+; Lymphocytes 18 % (20-55); Ovalocytes Few; Platelet Estimate Normal; Total Cells Counted 100
[2022-07-07 08:17] VITALS: BP 124/85
[2022-07-07] MEDS: INSULIN REGULAR 100 UNIT/ML SUBCUT SCH ×2 (09:30→11:32)
[2022-07-07] MEDS: CHOLECALCIFEROL 1,000 UNIT TABLET PO SCH (09:34)
[2022-07-07] MEDS: CLOPIDOGREL 75 MG TABLET PO SCH (09:34)
[2022-07-07] MEDS: MAGNESIUM OXIDE 400 MG TABLET PO SCH (09:34)
[2022-07-07] MEDS: PANTOPRAZOLE 40 MG TABLET PO SCH (09:34)
== END 2022-07-07 12:00 | disposition home or self-care (01) ==
LOC: N.2W 09:12 → N.ED 09:12 → N.2W 14:41
PROVIDERS: ADMIT Internal Medicine; ATTEND Internal Medicine
PROC: CLDCICD (2022-07-06 10:45)